=== PATIENT | male | born 1960 | race African-American/Black ===

== ENCOUNTER 2017-04-14 13:14 | Emergency (ER) | payer SELFPAY ==
[~2017-04-14] VITALS: Ht 182.9 cm; Wt 76.0 kg
[2017-04-14 13:16] VITALS: BP 133/95; PULSE 98; RESP 18; TEMP 97.9; O2SAT 97
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
[2017-04-14] MEDS ORDERED: KETOROLAC TROMETHAMINE 60 MG/2 ML (IM) VIAL IM ONE (13:45)
[2017-04-14] MEDS ORDERED: SILVER SULFADIAZINE 1% CR 50 GM JAR TOPICAL ONE (13:45)
[2017-04-14] MEDS ORDERED: TETANUS/DIPHTHERIA TOXOID ADULT 0.5 ML VIAL IM ONE (13:45)
[2017-04-14] MEDS ORDERED: IBUP-232 PO (14:12)
[2017-04-14] MEDS ORDERED: SILV1CRE20 TOPICAL (14:12)
[2017-04-14] MEDS ORDERED: HYDR-3533 PO (14:12)
== END 2017-04-14 14:32 | disposition home or self-care (01) ==
LOC: NEPK 13:14
DX: T24.232A Burn of second degree of left lower leg, initial encounter (principal); X08.8XXA Exposure to other specified smoke, fire and flames, initial encounter; Z23 Encounter for immunization
CPT/HCPCS: 16000; 90471; 90714; 96372; 99284; J1885